=== PATIENT | female | born 1950 | race Caucasian/White ===

== ENCOUNTER 2017-01-24 16:02 | Inpatient (IN) | payer MEDICARE ==
[~2017-01-24] VITALS: Ht 160 cm; Wt 69.8 kg
[~2017-01-24 16:02] MED LIST: ESTR1TAB PO; LORTA5 PO
[2017-01-24 16:12] VITALS: BP 141/89; PULSE 78; RESP 16; TEMP 97.9; O2SAT 96
[2017-01-24 16:15] VITALS: RESP 16; O2SAT 98
[2017-01-24] MEDS ORDERED: LOPREEZA PO (16:23)
[2017-01-24] MEDS ORDERED: SODIUM CHLOR 0.9% 1000 ML INJ 1,000 ML IV SCH (16:35)
[2017-01-24] MEDS ORDERED: ONDANSETRON HCL 4 MG/2 ML VIAL IVP ONE (16:45)
[2017-01-24] MEDS ORDERED: MORPHINE SULFATE 4 MG/ML INJ IV PUSH ONE (16:45)
[2017-01-24] MEDS ORDERED: SODIUM CHLORIDE 0.9% FLUSH 10 ML FLUSH IV FLUSH PRN ×2 (16:45→20:15)
--- NOTE | 2017-01-24 16:59 | PD ---
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 She states the surgery was remote. Today the pain she states is in her left upper quadrant, cramping, radiates to her back, associated with nausea without vomiting, chronic diarrhea secondary to short gut syndrome. PFSH Past Medical History Cancer: No Cardiovascular Problems: No Diabetes: No Endocrine: No Gastrointestinal Disorders: Yes (1996 COLON RESECTION DUE TO ULCERATIVE COLITIS ) Genitourinary: No Hepatitis: No Hiatal Hernia: No Immune Disorder: Yes (ULCERATIVE COLITIS) Medical other: Yes (HX ULCERATIVE COLITIS) Musculoskeletal: Yes (LOW BACK PAIN; 04/05 LEFT SI INJECTION) Neurologic: No Psychiatric: No Reproductive: Yes Respiratory: No Immunizations Current: Yes Thyroid Disease: No Tetanus Vaccination: Unknown Influenza Vaccination: No ?: Not Menopausal: Yes Dilation and Curettage (D&C): Yes Tubal Ligation: Yes Past Surgical History Abdominal Surgery: Yes (1996 COLECTOMY WITH ILEOANAL POUCH; REVERSAL OF POUCH) AICD: No Body Medical Devices: SURGICAL MARLEN ? Cardiac Surgery: No Ear Surgery: No Endocrine Surgery: No Eye Surgery: Yes (CATARACT SX ) Genitourinary Surgery: No Gynecologic Surgery: Yes (TUBAL LIGATION ) Joint Replacement: No Oral Surgery: Yes (wisdom teeth taken out) Pacemaker: No Thoracic Surgery: No Other Surgery: Yes (ABDOMINOPLASTY/DIASTAIS REPAIR/ 03/2015 twisted bowel) Social History Alcohol Use: No Tobacco Use: No Substance Use: No Allergies-Medications (Allergen,Severity, Reaction): Coded Allergies: Sulfa (Sulfonamide Antibiotics) (Unverified Allergy, Severe, Nausea/ Vomiting, 01/24/17) Reported Meds & Prescriptions Reported Meds & Active Scripts Active Reported [lopreeza] 1 Tab PO DAILY Review of Systems Except as stated in HPI: all other systems reviewed are Neg Physical Exam Narrative GENERAL: Well-developed, appears chronically mildly malnourished and older than stated age. SKIN: Focused skin assessment warm/dry. No rash no wound. Well-healed abdominal surgical scars. HEAD: Atraumatic. Normocephalic. EYES: Pupils equal and round. No scleral icterus. No injection or drainage. ENT: No nasal bleeding or discharge. Mucous membranes pink and moist. NECK: Trachea midline. No JVD. CARDIOVASCULAR: Regular rate and rhythm. No murmur appreciated. RESPIRATORY: No accessory muscle use. Clear to auscultation. Breath sounds equal bilaterally. GASTROINTESTINAL: Abdomen soft, minimally tender in the right lower quadrant, no rebound no percussive tenderness., nondistended. Hepatic and splenic margins not palpable. MUSCULOSKELETAL: No obvious deformities. No clubbing. No cyanosis. No edema. NEUROLOGICAL: Awake and alert. No obvious cranial nerve deficits. Motor grossly within normal limits. Normal speech. PSYCHIATRIC: Appropriate mood and affect; insight and judgment normal. Data Data Last Documented VS Vital Signs Date Time Temp Pulse Resp B/P (MAP) Pulse Ox O2 Delivery O2 Flow Rate FiO2 01/24/17 17:53 79 16 101/59 (73) 97 Room Air 01/24/17 16:12 97.9 Orders Orders Complete Blood Count With Diff (01/24/17 16:35) Comprehensive Metabolic Panel (01/24/17 16:35) Lipase (01/24/17 16:35) Lactic Acid (01/24/17 16:35) Prothrombin Time / Inr (Pt) (01/24/17 16:35) Act Partial Throm Time (Ptt) (01/24/17 16:35) Urinalysis - C+S If Indicated (01/24/17 16:35) Ct Abd/Pel W Iv Contrast(Rout) (01/24/17 16:35) Iv Access Insert/Monitor (01/24/17 16:35) Ecg Monitoring (01/24/17 16:35) Oximetry (01/24/17 16:35) Morphine Inj (Morphine Inj) (01/24/17 16:45) Ondansetron Inj (Zofran Inj) (01/24/17 16:45) Sodium Chlor 0.9% 1000 Ml Inj (Ns 1000 M (01/24/17 16:35) Sodium Chloride 0.9% Flush (Ns Flush) (01/24/17 16:45) Iohexol 350 Inj (Omnipaque 350 Inj) (01/24/17 17:36) Consult Gastroenterology (01/24/17 ) Diet Npo (01/25/17 Breakfast) Admit Order (Ed Use Only) (01/24/17 ) Mri Mrcp W/O Contrast (01/25/17 ) Labs Laboratory Tests Test 01/24/17 16:45 01/24/17 16:55 White Blood Count 11.7 TH/MM3 Red Blood Count 4.22 MIL/MM3 Hemoglobin 13.1 GM/DL Hematocrit 38.2 % Mean Corpuscular Volume 90.4 FL Mean Corpuscular Hemoglobin 31.0 PG Mean Corpuscular Hemoglobin Concent 34.3 % Red Cell Distribution Width 11.8 % Platelet Count 195 TH/MM3 Mean Platelet Volume 8.6 FL Neutrophils (%) (Auto) 79.4 % Lymphocytes (%) (Auto) 12.8 % Monocytes (%) (Auto) 6.7 % Eosinophils (%) (Auto) 0.4 % Basophils (%) (Auto) 0.7 % Neutrophils # (Auto) 9.3 TH/MM3 Lymphocytes # (Auto) 1.5 TH/MM3 Monocytes # (Auto) 0.8 TH/MM3 Eosinophils # (Auto) 0.0 TH/MM3 Basophils # (Auto) 0.1 TH/MM3 CBC Comment DIFF FINAL Differential Comment Prothrombin Time 10.3 SEC Prothromb Time International Ratio 1.0 RATIO Activated Partial Thromboplast Time 24.4 SEC Blood Urea Nitrogen 11 MG/DL Creatinine 0.88 MG/DL Random Glucose 116 MG/DL Total Protein 7.3 GM/DL Albumin 3.2 GM/DL Calcium Level 8.7 MG/DL Alkaline Phosphatase 96 U/L Aspartate Amino Transf (AST/SGOT) 483 U/L Alanine Aminotransferase (ALT/SGPT) 282 U/L Total Bilirubin 1.6 MG/DL Sodium Level 136 MEQ/L Potassium Level 3.7 MEQ/L Chloride Level 105 MEQ/L Carbon Dioxide Level 24.0 MEQ/L Anion Gap 7 MEQ/L Estimat Glomerular Filtration Rate 64 ML/MIN Lactic Acid Level 1.7 mmol/L Lipase 5460 U/L Urine Color YELLOW Urine Turbidity CLEAR Urine pH 6.0 Urine Specific [place] 1.017 Urine Protein NEG mg/dL Urine Glucose (UA) NEG mg/dL Urine Ketones NEG mg/dL Urine Occult Blood SMALL Urine Nitrite NEG Urine Bilirubin NEG Urine Leukocyte Esterase NEG Urine RBC 0-3 /hpf Urine WBC 0-2 /hpf Urine Squamous Epithelial Cells 0-5 /hpf Microscopic Urinalysis Comment CULT NOT INDICATED MDM Medical Decision Making Medical Screen Exam Complete: Yes Emergency Medical Condition: Yes Differential Diagnosis Bowel obstruction, ileus, ischemic bowel likely, diverticulitis, gastritis, gastroenteritis. Narrative Course Patient roomed in emergency department, appears somewhat chronically malnourished. Abdomen she states was painful and left upper quadrant and minimally tender in the right lower quadrant. Bowel sounds are normoactive, no rebound no percussive tenderness. Patient's labs do show an elevated lipase to 5000, AST and ALT are elevated interestingly bilirubin only modestly elevated to 1.6, alkaline phosphatase normal. Her CAT scan does show lithiasis without cholecystitis. Patient discussed with Drs. Barnhart is on-call for GI who recommends admission to the hospital. MRCP has been ordered, could be a gallstone ileus associated with gallstone pancreatitis although the patient's alkaline phosphatase is negative. Certainly could be a chronic bowel dilation and alcohol ingestion of the patient does not relate a history of heavy alcohol ingestion to me. Either way the patient is feeling more comfortable and she is agreeable to admission. At this time the stomach is empty's and no indication for emergent NG tube placement. We'll defer to GI. Diagnosis Primary Impression: Pancreatitis Additional Impression: Small bowel obstruction Admitting Information Admitting Physician Requests: Admit Condition: Stable Phill Monroy MD Jan 24, 2017 16:59
[2017-01-24 17:00] LABS: AUTOMATED NEUTROPHIL # 9.3 TH/MM3 (1.8-7.7); BASOPHIL # 0.1 TH/MM3 (0-0.2); BASOPHIL % 0.7 % (0.0-2.0); EOSINOPHIL % 0.4 % (0.0-4.0); HEMATOCRIT 38.2 % (35.0-46.0); HEMO FLAGS DIFF FINAL; LYMPH % 12.8 % (9.0-44.0); LYMPHOCYTE # 1.5 TH/MM3 (1.0-4.8); MEAN CELL VOLUME 90.4 FL (80.0-100.0); MEAN CORPUSCULAR HGB CONC 34.3 % (32.0-36.0); MONO % 6.7 % (0.0-8.0); NEUT % 79.4 % (16.0-70.0); PLATELET COUNT 195 TH/MM3 (150-450); RED BLOOD COUNT 4.22 MIL/MM3 (4.00-5.30); RED CELL DISTRIBUTION WIDTH 11.8 % (11.6-17.2); WHITE BLOOD COUNT 11.7 TH/MM3 (4.0-11.0)
[2017-01-24 17:08] LABS: CHLORIDE 105 MEQ/L (98-107); POTASSIUM 3.7 MEQ/L (3.5-5.1); SODIUM (NA) 136 MEQ/L (136-145)
[2017-01-24 17:12] LABS: ANION GAP 7 MEQ/L (5-15); APTT (PATIENT) 24.4 SEC (24.3-30.1); PROTHROMBIN TIME - PATIENT 10.3 SEC (9.8-11.6)
[2017-01-24 17:13] LABS: BLOOD UREA NITROGEN 11 MG/DL (7-18)
[2017-01-24 17:15] LABS: ALT (GPT) 282 U/L (10-53); AST (GOT) 483 U/L (15-37); GLOMERULAR FILTRATION RATE 64 ML/MIN (>89)
[2017-01-24 17:17] LABS: TOTAL BILIRUBIN ADULT 1.6 MG/DL (0.2-1.0)
[2017-01-24 17:18] LABS: ALKALINE PHOSPHATASE 96 U/L (45-117)
[2017-01-24 17:20] LABS: BLOOD, URINE SMALL (NEG); GLUCOSE,URINE NEG (NEG); KETONE, URINE NEG (NEG); NITRITE,URINE NEG (NEG)
[2017-01-24 17:24] LABS: COMMENT (UR) CULT NOT INDICATED; CULTURE IF INDICATED CULT NOT INDICATED; RBC, URINE 0-3 /hpf (0-3); SQUAMOUS EPITHELIAL CELL URINE 0-5 /hpf (0-5); URINE COLOR YELLOW (YELLW/STRAW); WBC, URINE 0-2 /hpf (0-5)
[2017-01-24] MEDS ORDERED: IOHEXOL 350 MG/ML 10 ML VIAL (for RAD DIAG) IVCONTRAST ONE (17:36)
[2017-01-24 17:53] VITALS: BP 101/59; PULSE 79; RESP 16; O2SAT 97
--- NOTE | 2017-01-24 18:03 | RADRPT ---
EXAM DATE/TIME: 01/24/2017 17:30 [facility] COMPARISON: CT ABDOMEN & PELVIS W CONTRAST, June 05, 2015, 22:30. INDICATIONS : Abdominal pain. IV CONTRAST: 80 cc Omnipaque 350 (iohexol) IV ORAL CONTRAST: No oral contrast ingested. RADIATION DOSE: 9.64 CTDIvol (mGy) MEDICAL HISTORY : Ulcerative colitis. SURGICAL HISTORY : Colon resection. Tubal ligation. ENCOUNTER: Initial ACUITY: 1 day PAIN SCALE: 8/10 LOCATION: abdomen TECHNIQUE: Volumetric scanning of the abdomen and pelvis was performed. Using automated exposure control and adjustment of the mA and/or kV according to patient size, radiation dose was kept as low as reasonably achievable to obtain optimal diagnostic quality images. DICOM format image data is av ailable electronically for review and comparison. FINDINGS: LOWER LUNGS: The visualized lower lungs are clear. LIVER: Homogeneous density without lesion. There is no dilation of the biliary tree. The gallbla dder is moderately distended and contains small calcified stones. There is no significant wall thicke chioma or pericholecystic fluid. SPLEEN: Normal size without lesion. PANCREAS: Within normal limits. KIDNEYS: Normal in size and shape. There is no mass, stone or hydronephrosis. ADRENAL GLANDS: Within normal limits. VASCULAR: There is no aortic aneurysm. BOWEL/MESENTERY: The second and third portions of the duodenum are distended and filled with flui d. There is an acute transition as the duodenum crosses the aorta. A small vessel that is otherwise n ondistended. Postsurgical changes are moderate. A subtotal colectomy are noted. Focal scarring is rudolph ntified in the pelvis. There is no evidence of suspicious mass. Small cysts are identified in the lef t adnexal region. ABDOMINAL WALL: Within normal limits. RETROPERITONEUM: There is no lymphadenopathy. BLADDER: No wall thickening or mass. REPRODUCTIVE: Small cyst identified in the left adnexal region measuring 1.9 and 1.8 cm in size. The uterus is displaced to the left secondary to scarring. No suspicious solid pelvic masses or evide nce of lymphadenopathy. INGUINAL: There is no lymphadenopathy or hernia. MUSCULOSKELETAL: Within normal limits for patient age. CONCLUSION: 1. Distended second and third portions of the duodenum without apparent cause. 2. Postsurgical changes following subtotal colectomy. 3. Distended gallbladder with cholelithiasis but no active inflammatory change. 4. No evidence of suspicious mass or malignant lymphadenopathy. 5. 2 cm left adnexal cysts as described. Hugo Roberts MD on January 24, 2017 at 17:52 Board Certified Radiologist. This report was verified electronically.
[2017-01-24 19:38] VITALS: BP 98/54; PULSE 66; RESP 16; O2SAT 98
[2017-01-24] MEDS ORDERED: MORPHINE SULFATE 2 MG/ML INJ IV PUSH PRN (20:15)
[2017-01-24] MEDS ORDERED: NALOXONE HCL 0.4 MG/ML AMP IV PUSH PRN (20:15)
[2017-01-24 20:30] VITALS: BP 102/62; PULSE 69; RESP 16; TEMP 97.3; O2SAT 96
[2017-01-24] MEDS: SODIUM CHLORIDE 0.9% FLUSH 10 ML FLUSH IV FLUSH SCH (22:00)
[2017-01-24 23:00] VITALS: PULSE 59
[2017-01-25] VITALS (9 sets, daily range): BP systolic 88–118; BP diastolic 56–76; PULSE 68–91; RESP 15–20; TEMP 97.1–99.1; O2SAT 94–99
[2017-01-25 06:11] LABS: AUTOMATED NEUTROPHIL # 4.7 TH/MM3 (1.8-7.7); BASOPHIL % 0.2 % (0.0-2.0); EOSINOPHIL # 0.1 TH/MM3 (0-0.4); EOSINOPHIL % 1.7 % (0.0-4.0); HEMATOCRIT 36.5 % (35.0-46.0); HEMO FLAGS DIFF FINAL; LYMPH % 26.2 % (9.0-44.0); LYMPHOCYTE # 1.9 TH/MM3 (1.0-4.8); MEAN CELL VOLUME 91.1 FL (80.0-100.0); MEAN CORPUSCULAR HEMOGLOBIN 30.8 PG (27.0-34.0); MEAN CORPUSCULAR HGB CONC 33.8 % (32.0-36.0); MONO % 7.9 % (0.0-8.0); PLATELET COUNT 154 TH/MM3 (150-450); RED BLOOD COUNT 4.01 MIL/MM3 (4.00-5.30); RED CELL DISTRIBUTION WIDTH 11.9 % (11.6-17.2); WHITE BLOOD COUNT 7.3 TH/MM3 (4.0-11.0)
[2017-01-25 06:16] LABS: CHLORIDE 108 MEQ/L (98-107); POTASSIUM 3.7 MEQ/L (3.5-5.1); SODIUM (NA) 143 MEQ/L (136-145)
[2017-01-25 06:21] LABS: ANION GAP 8 MEQ/L (5-15); BICARBONATE 27.5 MEQ/L (21.0-32.0)
[2017-01-25 06:22] LABS: BLOOD UREA NITROGEN 11 MG/DL (7-18)
[2017-01-25 06:35] LABS: ALKALINE PHOSPHATASE 107 U/L (45-117); AST (GOT) 605 U/L (15-37); GLOMERULAR FILTRATION RATE 63 ML/MIN (>89); TOTAL BILIRUBIN ADULT 3.5 MG/DL (0.2-1.0)
[2017-01-25 06:36] LABS: ALT (GPT) 582 U/L (10-53)
[2017-01-25] MEDS: ONDANSETRON HCL 4 MG/2 ML VIAL IVP PRN (08:36)
[2017-01-25] MEDS ORDERED: LORazepam 2 MG/ML VIAL IV PUSH ONE (09:00)
[2017-01-25] MEDS: SODIUM CHLOR 0.9% 1000 ML INJ 1,000 ML IV SCH ×2 (09:33→21:36)
[2017-01-25] MEDS: SODIUM CHLORIDE 0.9% FLUSH 10 ML FLUSH IV FLUSH SCH ×2 (09:33→21:00)
--- NOTE | 2017-01-25 10:44 | MB ---
cc: IGNACIO MELO M.D. DATE OF CONSULTATION 01/24/2017 DATE OF 1950 REASON FOR REFERRAL Abdominal pain. HISTORY OF THE PRESENT ILLNESS Thank you for this consultation. A pleasant 66-year-old lady who is generally in good health. No significant problem until two days ago when she started having significant abdominal pain in the mid epigastric area with some nausea and vomiting. The patient denied any other problems. The pain mostly limited to the gastric area and radiating to the back side and to the back. Not related to food but she does not feel that she wants to eat. The patient also has diarrhea but it is related to short gut syndrome because she had large resection of her colon secondary to supposedly twisted colon. She denied any other GI issue and no other GI symptoms. ALLERGIES SULFA. PAST MEDICAL HISTORY Significant for: 1. Colon resection in 1996. Supposedly ulcerative colitis versus colon. 2. Low back pain. 3. Dilation and curettage. 4. No high blood pressure. No diabetes. No cardiac issues. 5. She had tubal ligation in the past. 6. Cataract surgery. SOCIAL HISTORY Negative for tobacco, drugs or alcohol. MEDICATIONS Just [id number] vitamin. REVIEW OF SYSTEMS All 12 point negative except for the history of present illness. PHYSICAL EXAMINATION GENERAL: Alert and oriented in no acute distress. Lying in bed comfortably. Well-nourished, well-developed. VITAL SIGNS: Stable. No fever. HEENT: Pupils equal, round and reactive to light. NECK: Supple. CHEST: Clear to auscultation and percussion. CARDIOVASCULAR: Regular rate and rhythm. No murmur or gallop. ABDOMEN: Soft. Minimal tenderness in the mid abdomen. Positive bowel sounds. No hepatosplenomegaly. EXTREMITIES: No edema, clubbing or cyanosis. NEUROLOGICAL: Intact without any focal deficits. PSYCHOLOGIC: Appropriate. LABORATORY DATA White count 11.7, hemoglobin 13, platelet count 195. INR 1.0. Chemistry, BUN, creatinine and electrolytes normal. Total bilirubin 1.6. AST 483. ALT 282. Lipase 5460. Albumin 3.2. IMAGING CT scan, distended second and third portion of the duodenum. Post surgical changes following subtotal colectomy. Distended gallbladder with cholelithiasis. No evidence of mass or malignancy. ASSESSMENT AND PLAN A 56-year-old lady who had abdominal pain most likely related to pancreatitis, most likely biliary in origin especially with elevated liver enzymes and the CT scan findings. The patient now is doing okay, no significant problem. I am going to order and MRCP to evaluate the biliary tree and rule out common bile duct stone. We will repeat liver function tests and lipase. Continue hydration. Pain medicine as needed. Further plan depends on how she is doing and the findings on the MRCP. MD LIZZIE Mayo/KK /9:32 PM /10:38 AM
--- NOTE | 2017-01-25 11:22 | RADRPT ---
EXAM DATE/TIME: 01/25/2017 10:16 [facility] COMPARISON: CT ABDOMEN & PELVIS W CONTRAST, January 24, 2017, 17:30. INDICATIONS : Abdominal pain. Nausea and vomiting. MEDICAL HISTORY : None. SURGICAL HISTORY : Colostomy. Tubal ligation. Ileostomy. ENCOUNTER: Initial ACUITY: 1 day PAIN SCORE: 5/10 LOCATION: Abdomen. TECHNIQUE: Multiplanar, multisequence magnetic resonance imaging of the abdomen was performed. High-resolution 3D dataset was utilized to reconstruct maximum-intensity projection (MIP) images. FINDINGS: INTRAHEPATIC BILE DUCTS: Within normal limits. No significant anatomical variant is present. EXTRAHEPATIC BILE DUCTS: The common bile duct measures 5 mm and tapers distally. No stone or filling defect is identified. GALLBLADDER: There are multiple small stones in the gallbladder. No wall thickening, wall edema, or pericholecysti c fluid is present. LIVER: There is mild signal loss on out of phase imaging. No concerning liver lesion is identified on this n on-contrast exam. PANCREAS: The main pancreatic duct is normal in size. There is no significant anatomical variant. Signal inte nsity is within normal limits. No mass is visualized on this non-contrast exam. OTHER: The remaining visualized structures demonstrate no acute abnormality on this non-contrast exam. CONCLUSION: 1. Cholelithiasis. However, there are no findings to indicate acute gallbladder obstruction or inflam mation. 2. The intra-and extrahepatic bile ducts are within normal limits. 3. Mild hepatic steatosis. Cayden Dong MD on January 25, 2017 at 11:15 Board Certified Radiologist. This report was verified electronically.
--- NOTE | 2017-01-25 12:39 | PD.CONS ---
cc: Kaden Hernandez MD HPI Service General Surgery Consult Requested By Cayden RODRIGUEZ Reason for Consult Cholelithiasis Primary Care Physician Benson Santiago M.D. History of Present Illness This is a 66 year old female with a past medical history of ulcerative colitis s /p colon resection who presents to the Emergency Department with LUQ pain that began on Sunday evening. She reports she had made Doyle Matthew soup that day and had a small amount of it. She does have associated nausea and vomiting. A CT of the abdomen/pelvis was complete which revealed a dilated duodenum and cholelithiasis. She had increased liver enzymes. An MRCP has been ordered but is not complete to evaluate for a common bile duct stone. A General Surgery consultation has been requested for evaluation of cholelithiasis. Review of Systems Constitutional: COMPLAINS OF: Fatigue, Chills, Dizziness, Change in appetite Endocrine: DENIES: Polydipsia, Polyuria, Polyphagia Eyes: DENIES: Diplopia Ears, nose, mouth, throat: DENIES: Hearing loss Respiratory: DENIES: Cough Cardiovascular: DENIES: Palpitations Gastrointestinal: COMPLAINS OF: Abdominal pain, Nausea, Vomiting Genitourinary: DENIES: Urinary frequency Musculoskeletal: DENIES: Joint pain Integumentary: DENIES: Abnormal pigmentation Hematologic/lymphatic: DENIES: Bruising Immunologic/allergic: DENIES: Eczema Neurologic: COMPLAINS OF: Headache, DENIES: Localized weakness Psychiatric: DENIES: Mood changes, Depression Past Family Social History Past Medical History Ulcerative colitis Past Surgical History Tubal ligation Colon resection for ulcerative colitis Reported Medications lopreeza Allergies: Coded Allergies: Sulfa (Sulfonamide Antibiotics) (Unverified Allergy, Severe, Nausea/ Vomiting, 01/24/17) Active Ordered Medications Current Medications Medications (Trade) Dose Ordered Sig/Edgar Route Start Time Stop Time Status Last Admin (NS Flush) 2 ml UNSCH PRN IV FLUSH 01/24/17 20:15 (NS Flush) 2 ml BID IV FLUSH 01/24/17 21:00 01/25/17 09:33 (Zofran Inj) 4 mg Q6H PRN IVP 01/24/17 20:15 01/25/17 08:36 (Narcan Inj) 0.4 mg UNSCH PRN IV PUSH 01/24/17 20:15 (Morphine Inj) 2 mg Q3H PRN IV PUSH 01/24/17 20:15 Sodium Chloride 1,000 ml @ 125 mls/hr Q8H IV 01/25/17 08:45 01/25/17 09:33 Family History Noncontributory Social History Denies tobacco use Denies ETOH use Denies illicit drug use Physical Exam Vital Signs Vital Signs Date Time Temp Pulse Resp B/P (MAP) Pulse Ox O2 Delivery O2 Flow Rate FiO2 01/25/17 12:00 98.3 69 16 118/65 (82) 99 01/25/17 08:00 97.8 68 16 104/63 (77) 96 01/25/17 04:00 97.4 72 16 88/56 (67) 96 01/25/17 00:00 97.4 68 16 105/66 (79) 97 01/24/17 23:00 59 01/24/17 20:30 97.3 69 16 102/62 (75) 96 01/24/17 20:14 98 01/24/17 19:38 66 16 98/54 (69) 98 Room Air 01/24/17 17:53 79 16 101/59 (73) 97 Room Air 01/24/17 17:52 16 01/24/17 16:15 16 98 Room Air 01/24/17 16:14 16 01/24/17 16:12 97.9 78 16 141/89 (106) 96 Physical Exam GENERAL: Pleasant 66 year old female sitting on the side of the bed in moderate distress. SKIN: Cool and dry. HEAD: Atraumatic. Normocephalic. EYES: Pupils equal and round. No scleral icterus. No injection or drainage. ENT: No nasal bleeding or discharge. Mucous membranes pink and moist. NECK: Trachea midline. CARDIOVASCULAR: Regular rate and rhythm. RESPIRATORY: No accessory muscle use. Clear to auscultation. Breath sounds equal bilaterally. GASTROINTESTINAL: Abdomen soft, nondistended. Epigastric to LUQ tenderness with palpation. Well healed midline scar; well healed lower incision; prior colostomy site well healed. MUSCULOSKELETAL: Extremities without clubbing, cyanosis, or edema. No obvious deformities. NEUROLOGICAL: Awake and alert. No obvious cranial nerve deficits. Motor grossly within normal limits. Five out of 5 muscle strength in the arms and legs. Normal speech. PSYCHIATRIC: Appropriate mood and affect; insight and judgment normal. Laboratory Laboratory Tests Test 01/24/17 16:45 01/24/17 16:55 01/25/17 05:40 01/25/17 11:20 White Blood Count 11.7 7.3 Red Blood Count 4.22 4.01 Hemoglobin 13.1 12.3 Hematocrit 38.2 36.5 Mean Corpuscular Volume 90.4 91.1 Mean Corpuscular Hemoglobin 31.0 30.8 Mean Corpuscular Hemoglobin Concent 34.3 33.8 Red Cell Distribution Width 11.8 11.9 Platelet Count 195 154 Mean Platelet Volume 8.6 8.6 Neutrophils (%) (Auto) 79.4 64.0 Lymphocytes (%) (Auto) 12.8 26.2 Monocytes (%) (Auto) 6.7 7.9 Eosinophils (%) (Auto) 0.4 1.7 Basophils (%) (Auto) 0.7 0.2 Neutrophils # (Auto) 9.3 4.7 Lymphocytes # (Auto) 1.5 1.9 Monocytes # (Auto) 0.8 0.6 Eosinophils # (Auto) 0.0 0.1 Basophils # (Auto) 0.1 0.0 CBC Comment DIFF FINAL DIFF FINAL Differential Comment Prothrombin Time 10.3 Prothromb Time International Ratio 1.0 Activated Partial Thromboplast Time 24.4 Blood Urea Nitrogen 11 11 Creatinine 0.88 0.89 Random Glucose 116 94 Total Protein 7.3 6.4 Albumin 3.2 2.8 Calcium Level 8.7 8.1 Alkaline Phosphatase 96 107 Aspartate Amino Transf (AST/SGOT) 483 605 Alanine Aminotransferase (ALT/SGPT) 282 582 Total Bilirubin 1.6 3.5 Sodium Level 136 143 Potassium Level 3.7 3.7 Chloride Level 105 108 Carbon Dioxide Level 24.0 27.5 Anion Gap 7 8 Estimat Glomerular Filtration Rate 64 63 Lactic Acid Level 1.7 Lipase 5460 5792 Urine Color YELLOW Urine Turbidity CLEAR Urine pH 6.0 Urine Specific [place] 1.017 Urine Protein NEG Urine Glucose (UA) NEG Urine Ketones NEG Urine Occult Blood SMALL Urine Nitrite NEG Urine Bilirubin NEG Urine Leukocyte Esterase NEG Urine RBC 0-3 Urine WBC 0-2 Urine Squamous Epithelial Cells 0-5 Microscopic Urinalysis Comment CULT NOT INDICATED Direct Bilirubin 1.3 Result Diagram: 01/25/17 0540 01/25/17 0540 Imaging Last 48 hours Impressions Cholangiopancreatography MRI 01/25/17 0000 Signed Impressions: Service Date/Time: January 10:16 - CONCLUSION: 1. Cholelithiasis. However, there are no findings to indicate acute gallbladder obstruction or inflammation. 2. The intra-and extrahepatic bile ducts are within normal limits. 3. Mild hepatic steatosis. Cayden Dong MD Abdomen/Pelvis CT 01/24/17 1635 Signed Impressions: Service Date/Time: Tuesday, January 24, 2017 17:30 - CONCLUSION: 1. Distended second and third portions of the duodenum without apparent cause. 2. Postsurgical changes following subtotal colectomy. 3. Distended gallbladder with cholelithiasis but no active inflammatory change. 4. No evidence of suspicious mass or malignant lymphadenopathy. 5. 2 cm left adnexal cysts as described. Hugo Roberts MD Assessment and Plan Assessment and Plan 66 year old female with LUQ abdominal pain; elevated liver enzymes; dilated duodenum on CT abd/pelvis -NPO -Monitor liver enzymes -IVF -Pain control -MRCP to rule out common bile duct stone -GI following -Thank you for this consult; We will continue to follow Agree with Paul. Needs assessment of CBD and duodenum (dilated on CT). Will FU labs and see if they correct. Discussed possibilty of gallstone pancreatitis and elective cholecystectomy with patient and . ADRIA HERNANDEZ MD FACS Discussed Condition With Dr. David Dunn and Cleo Demarco RN Jan 25, 2017 12:39 Kaden Hernandez MD Jan 26, 2017 13:08
--- NOTE | 2017-01-25 13:04 | HHI.HP ---
[facility] Benson Santiago M.D. Admission Diagnosis Pancreatitis, Transaminitis, Possible Ileus Diagnoses: Travel History International Travel<30 Days: No Contact w/Intl Traveler <30 Da: No Traveled to Known Affected Are: No History of Present Illness 66-year-old white female who was admitted for gallstone pancreatitis. Patient was in her usual state of health until about a few days ago when she began experiencing a sudden onset of abdominal pain after reaching for an object with her left arm at home. The pain radiated from her left upper abdomen to her mid epigastrium. Pain at its worst fluctuating up to a 10/10. Initially the pain would wax and wane but in the last 24 hours he became more persistent and unbearable and the patient decided to come to the emergency room. She has difficulty describing the consistency or the nature of the pain to me. She says she cannot of the right any alleviating or relieving factors otherwise when he came to medications or positioning. Patient reports some intermittent nausea but no vomiting, denies any fevers or chills. Denies any changes in her bowel habits in the past few days. She says she does not take any ongoing prescribed medications. She states that she has a complex intra-abdominal medical/surgical history with colon resection for ulcerative colitis as well as what sounds like adhesion within the past few years. Review of Systems Except as stated in HPI: all other systems reviewed are Neg Past Family Social History Past Medical History Ulcerative colitis Past Surgical History Colon resection Intestinal re-anastomosis Allergies: Coded Allergies: Sulfa (Sulfonamide Antibiotics) (Unverified Allergy, Severe, Nausea/ Vomiting, 01/24/17) Family History Ulcerative colitis in uncle Social History Denies any tobacco usage on the past, reports very light occasional alcohol use , denies any and all illicit drug use Physical Exam Vital Signs Vital Signs Date Time Temp Pulse Resp B/P (MAP) Pulse Ox O2 Delivery O2 Flow Rate FiO2 01/25/17 12:00 98.3 69 16 118/65 (82) 99 01/25/17 08:00 97.8 68 16 104/63 (77) 96 01/25/17 04:00 97.4 72 16 88/56 (67) 96 01/25/17 00:00 97.4 68 16 105/66 (79) 97 01/24/17 23:00 59 01/24/17 20:30 97.3 69 16 102/62 (75) 96 01/24/17 20:14 98 01/24/17 19:38 66 16 98/54 (69) 98 Room Air 01/24/17 17:53 79 16 101/59 (73) 97 Room Air 01/24/17 17:52 16 01/24/17 16:15 16 98 Room Air 01/24/17 16:14 16 01/24/17 16:12 97.9 78 16 141/89 (106) 96 Physical Exam VS: afebrile GENERAL: NAD, elderly white female lying in bed, awake, alert, well-nourished SKIN: Warm and dry. Very subtle jaundice EYES: No scleral icterus. No injection or drainage. ENT: No nasal bleeding or discharge. Mucous membranes pink and moist. CARDIOVASCULAR: Regular rate and rhythm. no murmurs RESPIRATORY: No accessory muscle use. Clear to auscultation. Breath sounds equal bilaterally. GASTROINTESTINAL: Abdomen soft, ND. Has some mild tenderness to palpation with no rebound over epigastrium. Extremities: No clubbing, cyanosis, or edema. No obvious deformities. MUSCULOSKELETAL: Extremities without clubbing, cyanosis, or edema. No obvious deformities. grossly intact ROM with 5/5 strength in upper and lower extremities proximally NEUROLOGICAL: Awake and alert. No obvious cranial nerve deficits. No facial droop nor slurred speech noted. PSYCHIATRIC: Appropriate mood and affect; insight and judgment normal. Laboratory Laboratory Tests Test 01/24/17 16:45 01/24/17 16:55 01/25/17 05:40 01/25/17 11:20 White Blood Count 11.7 7.3 Red Blood Count 4.22 4.01 Hemoglobin 13.1 12.3 Hematocrit 38.2 36.5 Mean Corpuscular Volume 90.4 91.1 Mean Corpuscular Hemoglobin 31.0 30.8 Mean Corpuscular Hemoglobin Concent 34.3 33.8 Red Cell Distribution Width 11.8 11.9 Platelet Count 195 154 Mean Platelet Volume 8.6 8.6 Neutrophils (%) (Auto) 79.4 64.0 Lymphocytes (%) (Auto) 12.8 26.2 Monocytes (%) (Auto) 6.7 7.9 Eosinophils (%) (Auto) 0.4 1.7 Basophils (%) (Auto) 0.7 0.2 Neutrophils # (Auto) 9.3 4.7 Lymphocytes # (Auto) 1.5 1.9 Monocytes # (Auto) 0.8 0.6 Eosinophils # (Auto) 0.0 0.1 Basophils # (Auto) 0.1 0.0 CBC Comment DIFF FINAL DIFF FINAL Differential Comment Prothrombin Time 10.3 Prothromb Time International Ratio 1.0 Activated Partial Thromboplast Time 24.4 Blood Urea Nitrogen 11 11 Creatinine 0.88 0.89 Random Glucose 116 94 Total Protein 7.3 6.4 Albumin 3.2 2.8 Calcium Level 8.7 8.1 Alkaline Phosphatase 96 107 Aspartate Amino Transf (AST/SGOT) 483 605 Alanine Aminotransferase (ALT/SGPT) 282 582 Total Bilirubin 1.6 3.5 Sodium Level 136 143 Potassium Level 3.7 3.7 Chloride Level 105 108 Carbon Dioxide Level 24.0 27.5 Anion Gap 7 8 Estimat Glomerular Filtration Rate 64 63 Lactic Acid Level 1.7 Lipase 5460 5792 Urine Color YELLOW Urine Turbidity CLEAR Urine pH 6.0 Urine Specific [place] 1.017 Urine Protein NEG Urine Glucose (UA) NEG Urine Ketones NEG Urine Occult Blood SMALL Urine Nitrite NEG Urine Bilirubin NEG Urine Leukocyte Esterase NEG Urine RBC 0-3 Urine WBC 0-2 Urine Squamous Epithelial Cells 0-5 Microscopic Urinalysis Comment CULT NOT INDICATED Direct Bilirubin 1.3 Result Diagram: 01/25/17 0540 01/25/17539 Caprini VTE Risk Assessment Caprini VTE Risk Assessment: Mod/High Risk (score >= 2) Caprini Risk Assessment Model Point Value = 1 Point Value = 2 Point Value = 3 Point Value = 5 Age 41-60 Minor surgery BMI > 25 kg/m2 Swollen legs Varicose veins or History of unexplained or recurrent spontaneous Oral contraceptives or hormone replacement Sepsis (< 1 month) Serious lung disease, including pneumonia (< 1 month) Abnormal pulmonary function Acute myocardial infarction Congestive heart failure (< 1 month) History of inflammatory bowel disease Medical patient at bed rest Age 61-74 Arthroscopic surgery Major open surgery (> 45 min) Laparoscopic surgery (> 45 min) Malignancy Confined to bed (> 72 hours) Immobilizing plaster cast Central venous access Age >= 75 History of VTE Family history of VTE Factor V Leiden Prothrombin [id number] Lupus anticoagulant Anticardiolipin antibodies Elevated serum homocysteine Heparin-induced thrombocytopenia Other congenital or acquired thrombophilia Stroke (< 1 month) Elective arthroplasty Hip, pelvis, or leg fracture Acute spinal cord injury (< 1 month) Prophylaxis Regimen Total Risk Factor Score Risk Level Prophylaxis Regimen 0-1 Low Early ambulation 2 Moderate Order ONE of the following: *Sequential Compression Device (SCD) *Heparin 5000 units SQ BID 3-4 Higher Order ONE of the following medications: *Heparin 5000 units SQ TID *Enoxaparin/Lovenox 40 mg SQ daily (WT < 150 kg, CrCl > 30 mL/min) *Enoxaparin/Lovenox 30 mg SQ daily (WT < 150 kg, CrCl > 10-29 mL/min) *Enoxaparin/Lovenox 30 mg SQ BID (WT < 150 kg, CrCl > 30 mL/min) AND/OR *Sequential Compression Device (SCD) 5 or more Highest Order ONE of the following medications: *Heparin 5000 units SQ TID (Preferred with Epidurals) *Enoxaparin/Lovenox 40 mg SQ daily (WT < 150 kg, CrCl > 30 mL/min) *Enoxaparin/Lovenox 30 mg SQ daily (WT < 150 kg, CrCl > 10-29 mL/min) *Enoxaparin/Lovenox 30 mg SQ BID (WT < 150 kg, CrCl > 30 mL/min) AND *Sequential Compression Device (SCD) Assessment and Plan Assessment and Plan suspected Gallstone pancreatitis - Bilirubin is elevated, MRCP is unremarkable regarding duct size - We'll monitor lipase and clinical symptoms - IV fluids and IV pain control, monitor respiratory status - Repeat BMP in a.m. - Appreciate GI and general surgery consultations. Transaminitis - Suspect possible choledocholithiasis - Repeat CMP in a.m. - IV fluids as above DVT prophylaxis SCDs given possibility of ERCP at any point Physician Certification 2 Midnight Certification Type: Admission for Inpatient Services Order for Inpatient Services The services are ordered in accordance with Medicare regulations or non- Medicare payer requirements, as applicable. In the case of services not specified as inpatient-only, they are appropriately provided as inpatient services in accordance with the 2-midnight benchmark. Estimated LOS (days): 2 2 days is the estimated time the patient will need to remain in the hospital, assuming treatment plan goals are met and no additional complications. Post-Hospital Plan: Home Steffen Lemus MD Jan 25, 2017 13:04
--- NOTE | 2017-01-25 16:55 | EKG ---
Date Performed: 01/25/2017 Time Performed: 15:58:33 PTAGE: 66 years EKG: Sinus rhythm BORDERLINE LEFT AXIS DEVIATION LOW QRS VOLTAGE IN PRECORDIAL LEADS BORDERLINE ECG No significant yocasta nge from prior electrocardiogram. PREVIOUS TRACING : 10/27/2015 09.18 DOCTOR: Willard Mackenzie Interpretating Date/Time 01/25/2017 16:54:29
--- NOTE | 2017-01-25 17:12 | PD.PROCEDR ---
GI Procedure PROCEDURE PERFORMED Enteroscopy with biopsy INDICATION FOR PROCEDURE Rule out duodenal obstruction, or mass causing bile duct obstruction PROCEDURE: The procedure, risks and benefits were discussed with Ms. Ponce and informed consent was obtained. Anesthesia sedated her with Diprivan. She was placed in the left lateral decubitus position. Enteroscopy: The Pentax videoscope was introduced through the oropharynx and advanced to the proximal portion of the jejunum under direct visualization. Retroflexion was performed in the stomach. Biopsy from the antrum FINDINGS: Minimal irritation of the stomach biopsy to rule out H. pylori Significant amount of bile in the duodenum and the stomach consistent with patent duct No mass was seen in the duodenum ampulla was not enlarged ESTIMATED BLOOD LOSS: Negative SPECIMENS REMOVED: Antrum COMPLICATIONS: None PLAN: Repeat liver function test and lipase Clear liquid diet Liver workup to rule out other etiology for elevated liver function tests Laparoscopic cholecystectomy at some point if indicated by surgeon Amanda Coker MD Jan 25, 2017 17:12
--- NOTE | 2017-01-25 17:15 | HHI.GIFU ---
Subjective Remarks Patient laying in bed comfortably, no abdominal pain, mild jaundice seen by surgery I discussed the case with them, Further questioning about medication exposure or other exposures patient stated that she only took S[place] and some NSAIDs in the last few weeks, also no needle was no blood noted to but she ate raw oyster 2 days in a row about 8 days ago Objective Vitals I&O Vital Signs Date Time Temp Pulse Resp B/P (MAP) Pulse Ox O2 Delivery O2 Flow Rate FiO2 01/25/17 16:15 97.8 91 15 115/76 (89) 97 01/25/17 16:00 99.1 78 16 106/59 (75) 94 01/25/17 12:00 98.3 69 16 118/65 (82) 99 01/25/17 08:00 97.8 68 16 104/63 (77) 96 01/25/17 04:00 97.4 72 16 88/56 (67) 96 01/25/17 00:00 97.4 68 16 105/66 (79) 97 01/24/17 23:00 59 01/24/17 20:30 97.3 69 16 102/62 (75) 96 01/24/17 20:14 98 01/24/17 19:38 66 16 98/54 (69) 98 Room Air 01/24/17 17:53 79 16 101/59 (73) 97 Room Air 01/24/17 17:52 16 I/O 01/24/17 01/24/17 01/24/17 01/25/17 01/25/17 01/25/17 07:00 15:00 23:00 07:00 15:00 23:00 Intake Total 1000 ml 240 ml Balance 1000 ml 240 ml Intake Oral 240 ml IV Total 1000 ml # Voids 3 2 # Bowel Movements 0 Laboratory Laboratory Tests Test 01/25/17 05:40 01/25/17 11:20 White Blood Count 7.3 Red Blood Count 4.01 Hemoglobin 12.3 Hematocrit 36.5 Mean Corpuscular Volume 91.1 Mean Corpuscular Hemoglobin 30.8 Mean Corpuscular Hemoglobin Concent 33.8 Red Cell Distribution Width 11.9 Platelet Count 154 Mean Platelet Volume 8.6 Neutrophils (%) (Auto) 64.0 Lymphocytes (%) (Auto) 26.2 Monocytes (%) (Auto) 7.9 Eosinophils (%) (Auto) 1.7 Basophils (%) (Auto) 0.2 Neutrophils # (Auto) 4.7 Lymphocytes # (Auto) 1.9 Monocytes # (Auto) 0.6 Eosinophils # (Auto) 0.1 Basophils # (Auto) 0.0 CBC Comment DIFF FINAL Differential Comment Blood Urea Nitrogen 11 Creatinine 0.89 Random Glucose 94 Total Protein 6.4 Albumin 2.8 Calcium Level 8.1 Alkaline Phosphatase 107 Aspartate Amino Transf (AST/SGOT) 605 Alanine Aminotransferase (ALT/SGPT) 582 Total Bilirubin 3.5 Direct Bilirubin 1.3 Sodium Level 143 Potassium Level 3.7 Chloride Level 108 Carbon Dioxide Level 27.5 Anion Gap 8 Estimat Glomerular Filtration Rate 63 Lipase 5792 Physical Exam HEENT: Pupils round and reactive to light; normocephalic; atraumatic; jaundice. Throat is clear. NECK: Neck is supple, no JVD, no lymphadenopathy. CHEST: Chest is clear to auscultation and percussion. CARDIAC: Regular rate and rhythm with no murmur gallop or rubs. ABDOMEN: Soft, nondistended, nontender; no hepatosplenomegaly; bowel sounds are present in all four quadrants. EXTREMITIES: No clubbing, cyanosis, or edema. SKIN: Normal; no rash; jaundice. INFORMATION CLERK: No focal deficits; alert and oriented times three. Assessment and Plan Plan Patient is 66-year-old lady with acute pancreatitis questionable etiology could be biliary, now she's doesn't have pain, MRCP show gallbladder stones normal size duct no filling defect, upper endoscopy was done with enteroscopy FINDINGS: Minimal irritation of the stomach biopsy to rule out H. pylori Significant amount of bile in the duodenum and the stomach consistent with patent duct No mass was seen in the duodenum ampulla was not enlarged PLAN: Repeat liver function test and lipase Clear liquid diet Liver workup to rule out other etiology for elevated liver function tests Laparoscopic cholecystectomy at some point if indicated by surgeon Amanda Coker MD Jan 25, 2017 17:15
[2017-01-25 23:15] LABS: TRANSFERRIN IRON PROFILE 228 MG/DL (200-360)
[2017-01-25] MEDS ORDERED: traMADol HCL 50 MG TAB PO ONE (23:45)
[2017-01-26] VITALS: BP 114/66; PULSE 78; RESP 20; TEMP 97.7; O2SAT 96
[2017-01-26] MEDS: SODIUM CHLOR 0.9% 1000 ML INJ 1,000 ML IV SCH ×3 (00:45→18:38)
[2017-01-26 04:00] VITALS: BP 108/64; PULSE 72; RESP 20; TEMP 97.1; O2SAT 95
[2017-01-26] MEDS: ONDANSETRON HCL 4 MG/2 ML VIAL IVP PRN ×3 (05:55→20:52)
[2017-01-26 06:32] LABS: CHLORIDE 108 MEQ/L (98-107); POTASSIUM 3.6 MEQ/L (3.5-5.1); SODIUM (NA) 140 MEQ/L (136-145)
[2017-01-26 06:37] LABS: ANION GAP 7 MEQ/L (5-15); BICARBONATE 25.4 MEQ/L (21.0-32.0); BLOOD UREA NITROGEN 9 MG/DL (7-18)
[2017-01-26 06:40] LABS: ALT (GPT) 357 U/L (10-53); AST (GOT) 202 U/L (15-37); GLOMERULAR FILTRATION RATE 89 ML/MIN (>89)
[2017-01-26 06:41] LABS: TOTAL BILIRUBIN ADULT 1.8 MG/DL (0.2-1.0)
[2017-01-26 06:43] LABS: ALKALINE PHOSPHATASE 92 U/L (45-117)
[2017-01-26 07:56] VITALS: BP 118/80; PULSE 76; RESP 16; TEMP 97.7; O2SAT 100
[2017-01-26] MEDS: SODIUM CHLORIDE 0.9% FLUSH 10 ML FLUSH IV FLUSH SCH ×2 (09:00→20:52)
--- NOTE | 2017-01-26 10:32 | RADRPT ---
EXAM DATE/TIME: 01/26/2017 08:30 [place] COMPARISON: MRCP W/O CONTRAST, January 25, 2017, 10:16. CT ABDOMEN & PELVIS W CONTRAST, January 24, 2017, 17:3 0. INDICATIONS : Abdominal pain, nausea and vomiting. DOSE: 4.1 mCi Tc99m Mebrofenin IV MEDICAL HISTORY : Low back pain. SURGICAL HISTORY : Colon resection. Tubal ligation. ENCOUNTER: Initial ACUITY: 1 day PAIN SCALE: 2/10 LOCATION: Right upper quadrant TECHNIQUE: Following the intravenous administration of radiotracer, dynamic sequential images were performed wit h continuous acquisition. FINDINGS: HEPATIC KINETICS: There is prompt uptake of radiotracer in the liver. No focal defects are seen. There is normal rate of washout from the hepatic parenchyma. BILIARY CLEARANCE: Activity is first seen in the extrahepatic biliary system at 15 minutes. No significant small bowel e xcretion. GALLBLADDER: Activity is first seen in the gallbladder at 25 minutes. Common bile duct kinetics are normal and th ere is no evidence of biliary obstruction. BILIARY ENTRIC REFLUX: None observed. Examination was stopped prematurely at 75 minutes secondary to patient condition. CONCLUSION: 1. There is normal filling of the gallbladder which excludes acute cholecystitis and cystic duct obst ruction. 2. No excretion into the small bowel is observed. However, patient is on morphine and examination was stopped prematurely. Therefore, this finding may not be significant. Cayden Dong MD on January 26, 2017 at 10:28 Board Certified Radiologist. This report was verified electronically.
--- NOTE | 2017-01-26 10:33 | HHI.PR ---
Subjective Subjective Notes feels better today, going for HIDA scan this am. Objective Vitals/I&O Vital Signs Date Time Temp Pulse Resp B/P (MAP) Pulse Ox O2 Delivery O2 Flow Rate FiO2 01/26/17 07:56 97.7 76 16 118/80 (93) 100 01/24/17 19:38 Room Air Labs Laboratory Tests Test 01/25/17 11:20 01/25/17 19:50 01/26/17 05:25 Hepatitis A IgM Antibody NEGATIVE Hepatitis B Surface Antigen NEGATIVE Hepatitis B Core IgM Antibody NEGATIVE Hepatitis C Antibody NEGATIVE Iron Level 99 Total Iron Binding Capacity 319 Percent Iron Saturation 31.0 Blood Urea Nitrogen 9 Creatinine 0.66 Random Glucose 84 Total Protein 6.1 Albumin 2.7 Calcium Level 7.8 Alkaline Phosphatase 92 Aspartate Amino Transf (AST/SGOT) 202 Alanine Aminotransferase (ALT/SGPT) 357 Total Bilirubin 1.8 Sodium Level 140 Potassium Level 3.6 Chloride Level 108 Carbon Dioxide Level 25.4 Anion Gap 7 Estimat Glomerular Filtration Rate 89 Lipase 332 Radiology Last 48 hours Impressions Cholangiopancreatography MRI 01/25/17 0000 Signed Impressions: Service Date/Time: January 10:16 - CONCLUSION: 1. Cholelithiasis. However, there are no findings to indicate acute gallbladder obstruction or inflammation. 2. The intra-and extrahepatic bile ducts are within normal limits. 3. Mild hepatic steatosis. Cayden Dong MD Abdomen/Pelvis CT 01/24/17 1635 Signed Impressions: Service Date/Time: Tuesday, January 24, 2017 17:30 - CONCLUSION: 1. Distended second and third portions of the duodenum without apparent cause. 2. Postsurgical changes following subtotal colectomy. 3. Distended gallbladder with cholelithiasis but no active inflammatory change. 4. No evidence of suspicious mass or malignant lymphadenopathy. 5. 2 cm left adnexal cysts as described. Hugo Roberts MD Abdomen: Non-distended, Non-tender, BS normal A/P Assessment and Plan pancreatitis, liver dysfunction - ?gallstone related? gallstone seems less likely in light of normal CBD and gallbladder on imaging continue RODNEY, if no other source discovered will consider elective lap keesha to eliminate gallstones pt has no clinical or radiographic signs of cholecystitis at this time - cystic duct is patent possible lap keesha during this hospitalization if labs normalize and pt clinical condition improves also DW pt and the possibility of elective cholecystectomy as outpatient if she wants to go home - can DC home and FU in office if they prefer. Kaden Zamarripa Dr., MD Jan 26, 2017 10:33
[2017-01-26 12:00] VITALS: BP 119/76; PULSE 77; RESP 15; TEMP 97.1; O2SAT 98
[2017-01-26] MEDS ORDERED: IBUPROFEN 600 MG TAB PO PRN (14:30)
[2017-01-26 16:00] VITALS: BP 134/73; PULSE 77; RESP 16; TEMP 98.6; O2SAT 96
--- NOTE | 2017-01-26 17:11 | HHI.PR ---
Subjective Remarks Nursing reports that the patient did have some nausea vomiting last night and early this morning. Patient did go for HIDA scan which had to be aborted due to her symptoms. Patient states she tolerated her clears after that. Objective Vital Signs Date Time Temp Pulse Resp B/P (MAP) Pulse Ox O2 Delivery O2 Flow Rate FiO2 01/26/17 16:00 98.6 77 16 134/73 (93) 96 01/26/17 12:00 97.1 77 15 119/76 (90) 98 01/26/17 07:56 97.7 76 16 118/80 (93) 100 01/26/17 04:00 97.1 72 20 108/64 (79) 95 01/26/17 00:00 97.7 78 20 114/66 (82) 96 01/25/17 20:05 70 01/25/17 20:00 98.0 73 20 112/67 (82) 96 01/25/17 17:57 97.1 73 16 104/63 (77) 95 01/25/17 17:30 97.9 81 15 109/62 (78) 100 109/62 (78) 01/25/17 17:15 90 15 92/60 (71) 94 92/60 (71) I/O 01/25/17 01/25/17 01/25/17 01/26/17 01/26/17 01/26/17 07:00 15:00 23:00 07:00 15:00 23:00 Intake Total 240 ml 800 ml 240 ml Balance 240 ml 800 ml 240 ml Intake Oral 240 ml 240 ml IV Total 600 ml Other 200 ml # Voids 3 2 2 1 # Bowel Movements 0 1 Result Diagram: 01/25/17 0540 01/26/17 0525 Objective Remarks Abdomen has very mild tenderness to palpation diffusely otherwise is soft with no rebound and nondistended Very minimal jaundice noticed on the patient otherwise, was in no acute distress at this time Has mild tenderness to palpation over her left upper back which was likely from muscle strain from dry heaving A/P Assessment and Plan suspected Gallstone pancreatitis - Bilirubin level is improving. MRCP is unremarkable regarding duct size - Incomplete HIDA scan, gallbladder shows good filling but unable to visualize component of small intestine filling. - We'll monitor lipase and clinical symptoms - IV fluids and IV pain control - CMP showing improvement LFTs - Appreciate GI and general surgery consultations. Transaminitis - Suspect possible choledocholithiasis - improving D/w GI - Will touch base with radiology to see if delayed imaging is worth it for CBD evaluation. Keeping pt overnight for further observation given her N/V this AM. DVT prophylaxis SCDs given possibility of ERCP at any point Steffen Lemus MD Jan 26, 2017 17:11
[2017-01-26 20:00] VITALS: BP 117/68; PULSE 61; RESP 20; TEMP 98.5; O2SAT 95
[2017-01-27] VITALS: BP 111/67; PULSE 58; RESP 16; TEMP 98.8; O2SAT 97
[2017-01-27] MEDS: ONDANSETRON HCL 4 MG/2 ML VIAL IVP PRN (03:40)
[2017-01-27 07:43] LABS: CHLORIDE 110 MEQ/L (98-107); POTASSIUM 3.5 MEQ/L (3.5-5.1); SODIUM (NA) 142 MEQ/L (136-145)
[2017-01-27 07:47] LABS: ANION GAP 8 MEQ/L (5-15); BICARBONATE 24.4 MEQ/L (21.0-32.0); BLOOD UREA NITROGEN 7 MG/DL (7-18)
[2017-01-27 07:50] LABS: ALT (GPT) 231 U/L (10-53); AST (GOT) 82 U/L (15-37); GLOMERULAR FILTRATION RATE 89 ML/MIN (>89)
[2017-01-27 07:52] LABS: TOTAL BILIRUBIN ADULT 1.3 MG/DL (0.2-1.0)
[2017-01-27 07:53] LABS: ALKALINE PHOSPHATASE 82 U/L (45-117)
[2017-01-27 08:00] VITALS: BP 114/69; PULSE 66; RESP 13; TEMP 97.7; O2SAT 95
[2017-01-27] MEDS: SODIUM CHLORIDE 0.9% FLUSH 10 ML FLUSH IV FLUSH SCH (09:00)
[2017-01-27 12:00] VITALS: BP 128/73; PULSE 62; RESP 15; TEMP 97.3; O2SAT 97
[2017-01-27] MEDS ORDERED: OXYC1CAP PO (13:39)
[2017-01-27] MEDS ORDERED: ZOFR4TAB3 SL (13:39)
--- NOTE | 2017-01-27 13:39 | HHI.DCPOC ---
Discharge Care Plan Diagnosis: (1) Small bowel obstruction (2) Pancreatitis (3) Gallstone pancreatitis Goals to Promote Your Health * To prevent worsening of your condition and complications * To maintain your health at the optimal level Directions to Meet Your Goals Take your medications as prescribed Follow your dietary instruction Follow activity as directed Keep your appointments as scheduled Take your immunizations and boosters as scheduled If your symptoms worsen call your PCP, if no PCP go to Urgent Care Center or Emergency Room Smoking is Dangerous to Your Health. Avoid second hand smoke Call the 24-hour hour crisis hotline for domestic abuse at [facility] Jan 27, 2017 13:39
--- NOTE | 2017-01-27 13:51 | HHI.DS ---
Discharge Summary Admission Date Jan 24, 2017 at 19:26 Discharge Date: Jan 27, 2017 Admitting Diagnosis Pancreatitis, Transaminitis, Possible Ileus (1) Gallstone pancreatitis ICD Code: K85.10 - Biliary acute pancreatitis without necrosis or infection Procedures none Brief History - From Admission 66-year-old white female who was admitted for gallstone pancreatitis. Patient was in her usual state of health until about a few days ago when she began experiencing a sudden onset of abdominal pain after reaching for an object with her left arm at home. The pain radiated from her left upper abdomen to her mid epigastrium. Pain at its worst fluctuating up to a 10/10. Initially the pain would wax and wane but in the last 24 hours he became more persistent and unbearable and the patient decided to come to the emergency room. She has difficulty describing the consistency or the nature of the pain to me. She says she cannot of the right any alleviating or relieving factors otherwise when he came to medications or positioning. Patient reports some intermittent nausea but no vomiting, denies any fevers or chills. Denies any changes in her bowel habits in the past few days. She says she does not take any ongoing prescribed medications. She states that she has a complex intra-abdominal medical/surgical history with colon resection for ulcerative colitis as well as what sounds like adhesion within the past few years. CBC/BMP: 01/25/17 0540 01/27/17 0650 Significant Findings Laboratory Tests Test 01/24/17 16:45 01/24/17 16:55 01/25/17 05:40 01/25/17 11:20 White Blood Count 11.7 TH/MM3 (4.0-11.0) Neutrophils (%) (Auto) 79.4 % (16.0-70.0) Neutrophils # (Auto) 9.3 TH/MM3 (1.8-7.7) Random Glucose 116 MG/DL (74-106) Albumin 3.2 GM/DL (3.4-5.0) 2.8 GM/DL (3.4-5.0) Aspartate Amino Transf (AST/SGOT) 483 U/L (15-37) 605 U/L (15-37) Alanine Aminotransferase (ALT/SGPT) 282 U/L (10-53) 582 U/L (10-53) Total Bilirubin 1.6 MG/DL (0.2-1.0) 3.5 MG/DL (0.2-1.0) Estimat Glomerular Filtration Rate 64 ML/MIN (>89) 63 ML/MIN (>89) Lipase 5460 U/L (73-393) 5792 U/L (73-393) Urine Occult Blood SMALL (NEG) Calcium Level 8.1 MG/DL (8.5-10.1) Direct Bilirubin 1.3 MG/DL (0.0-0.2) Chloride Level 108 MEQ/L (98-107) Test 01/25/17 19:50 01/26/17 05:25 01/27/17 06:50 Total Protein 6.1 GM/DL (6.4-8.2) 6.2 GM/DL (6.4-8.2) Albumin 2.7 GM/DL (3.4-5.0) 2.8 GM/DL (3.4-5.0) Calcium Level 7.8 MG/DL (8.5-10.1) 8.1 MG/DL (8.5-10.1) Aspartate Amino Transf (AST/SGOT) 202 U/L (15-37) 82 U/L (15-37) Alanine Aminotransferase (ALT/SGPT) 357 U/L (10-53) 231 U/L (10-53) Total Bilirubin 1.8 MG/DL (0.2-1.0) 1.3 MG/DL (0.2-1.0) Chloride Level 108 MEQ/L (98-107) 110 MEQ/L (98-107) Imaging Last Impressions Hepatobiliary Scan Nuclear Medicine 01/26/17 0000 Signed Impressions: Service Date/Time: Thursday, January 26, 2017 08:30 - CONCLUSION: 1. There is normal filling of the gallbladder which excludes acute cholecystitis and cystic duct obstruction. 2. No excretion into the small bowel is observed. However, patient is on morphine and examination was stopped prematurely. Therefore, this finding may not be significant. Cayden Dong MD Cholangiopancreatography MRI 01/25/17 0000 Signed Impressions: Service Date/Time: January 10:16 - CONCLUSION: 1. Cholelithiasis. However, there are no findings to indicate acute gallbladder obstruction or inflammation. 2. The intra-and extrahepatic bile ducts are within normal limits. 3. Mild hepatic steatosis. Cayden Dong MD Abdomen/Pelvis CT 01/24/17 1635 Signed Impressions: Service Date/Time: Tuesday, January 24, 2017 17:30 - CONCLUSION: 1. Distended second and third portions of the duodenum without apparent cause. 2. Postsurgical changes following subtotal colectomy. 3. Distended gallbladder with cholelithiasis but no active inflammatory change. 4. No evidence of suspicious mass or malignant lymphadenopathy. 5. 2 cm left adnexal cysts as described. Hugo Roberts MD PE at Discharge Abdomen soft, nontender, nondistended Hospital Course Patient was admitted and started on IV fluids and IV pain control. She underwent an MRCP which did not show common bile duct dilatation. Initially her symptoms were improving. However the first night she had a recurrence of her nausea and vomiting. Gen. surgery had been consulted. The patient's HIDA scan showed good filling of the gallbladder. Patient's symptoms had resolved once again and she was tolerating clear liquids well for the next 36 hours. Patient's LFTs had significantly improved and was cleared for discharge from GI and general surgery standpoint so long as patient follow-up with surgery as an outpatient for ultimate elective cholecystectomy. Patient and were comfortable with plan. Patient has met maximal benefit from hospitalization and is clinically stable for discharge. Patient was advised to simply take the pain medications as prescribed and to avoid any nonsteroidal anti-inflammatory drugs as well as Tylenol for the time being. Pt Condition on Discharge: Stable Discharge Disposition: Discharge Home Discharge Time: <= 30 minutes Discharge Instructions DIET: Follow Instructions for: Low Fat Diet Additional Diet Instructions: advance as tolerated with soft mechanical and low fat for next few days Activities you can perform: Regular-No Restrictions Follow up Referrals: Gastroenterology - 1 Week with Amanda Coker MD PCP Follow-up - 1 Week Surgical - 2 Weeks New Orders: COMP MET PROF (CMP) - 02/02/17 @ [facility] New Medications: Ondansetron Odt (Zofran Odt) 4 Mg Tab 4 MG SL Q6HR PRN for Nausea/Vomiting, #30 TAB 0 Refills Oxycodone (Oxycodone) 5 Mg Cap 5 MG PO Q6H PRN for PAIN, #12 CAP 0 Refills Continued Medications: [lopreeza] () 1 TAB PO DAILY Steffen Lemus MD Jan 27, 2017 13:51
--- NOTE | 2017-01-27 14:11 | HHI.GIFU ---
Subjective Remarks Patient feeling very well today no new complaint, no abdominal pain, tolerating diet well, no nausea or vomiting Objective Vitals I&O Vital Signs Date Time Temp Pulse Resp B/P (MAP) Pulse Ox O2 Delivery O2 Flow Rate FiO2 01/27/17 12:00 97.3 62 15 128/73 (91) 97 01/27/17 08:00 97.7 66 13 114/69 (84) 95 01/27/17 04:50 01/27/17 00:00 98.8 58 16 111/67 (82) 97 01/26/17 20:00 98.5 61 20 117/68 (84) 95 01/26/17 16:00 98.6 77 16 134/73 (93) 96 I/O 01/26/17 01/26/17 01/26/17 01/27/17 01/27/17 01/27/17 07:00 15:00 23:00 07:00 15:00 23:00 Intake Total 240 ml 1400 ml 1000 ml Balance 240 ml 1400 ml 1000 ml Intake Oral 240 ml 420 ml IV Total 980 ml 1000 ml # Voids 2 1 2 # Bowel Movements 1 Laboratory Laboratory Tests Test 01/27/17 06:50 Blood Urea Nitrogen 7 Creatinine 0.66 Random Glucose 88 Total Protein 6.2 Albumin 2.8 Calcium Level 8.1 Alkaline Phosphatase 82 Aspartate Amino Transf (AST/SGOT) 82 Alanine Aminotransferase (ALT/SGPT) 231 Total Bilirubin 1.3 Sodium Level 142 Potassium Level 3.5 Chloride Level 110 Carbon Dioxide Level 24.4 Anion Gap 8 Estimat Glomerular Filtration Rate 89 Physical Exam HEENT: Pupils round and reactive to light; normocephalic; atraumatic; no jaundice. Throat is clear. NECK: Neck is supple, no JVD, no lymphadenopathy. CHEST: Chest is clear to auscultation and percussion. CARDIAC: Regular rate and rhythm with no murmur gallop or rubs. ABDOMEN: Soft, nondistended, nontender; no hepatosplenomegaly; bowel sounds are present in all four quadrants. EXTREMITIES: No clubbing, cyanosis, or edema. SKIN: Normal; no rash; no jaundice. PARKING LOT SPOTTER: No focal deficits; alert and oriented times three. Assessment and Plan Plan Patient is 66-year-old lady with acute pancreatitis questionable etiology could be biliary, now she's doesn't have pain, MRCP show gallbladder stones normal size duct no filling defect, upper endoscopy was done with enteroscopy FINDINGS: Minimal irritation of the stomach biopsy to rule out H. pylori Significant amount of bile in the duodenum and the stomach consistent with patent duct No mass was seen in the duodenum ampulla was not enlarged 01/27/2017 Patient is doing well, no complaint at this time, liver function test improved significantly, most likely otitis unclear etiology possible medication related or vital, or could be just all related to gallbladder disease PLAN: Repeat liver function in 1 week Okay to discharge home Laparoscopic cholecystectomy next week, patient will follow up with Dr. rodriguez Follow up with GI as an outpatient in 1 week Amanda Coker MD Jan 27, 2017 14:11
[2017-01-30 23:53] LABS: MITOCHONDRIAL ABS LESS THAN 20.0 U (<=20.0)
== END 2017-01-27 14:12 | disposition home or self-care (01) | DRG 439 ==
LOC: PHED 16:02 → PHEDA 19:26 → PH3B 20:16
PROVIDERS: ADMIT Hospitalist; ATTEND Hospitalist
PROC: 0DB68ZX Excision of Stomach, Via Natural or Artificial Opening Endoscopic, Diagnostic (ICD-10-PCS; principal; 2017-01-25 16:36)
DX: K85.10 Biliary acute pancreatitis without necrosis or infection (principal); K91.2 Postsurgical malabsorption, not elsewhere classified; K76.89 Other specified diseases of liver; E44.1 Mild protein-calorie malnutrition; K80.20 Calculus of gallbladder without cholecystitis without obstruction; K29.50 Unspecified chronic gastritis without bleeding; Z88.2 Allergy status to sulfonamides; Z68.27 Body mass index [BMI] 27.0-27.9, adult; Z90.49 Acquired absence of other specified parts of digestive tract
CPT/HCPCS: 74177; 74181; 76377; 78226; 80053; 80074; 81001; 82103; 82248; 83520; 83540; 83550; 83605; 83690; 85025; 85610; 85730; 86038; 86255; 86376; 88305; 88312; 93005; 96361; 96374; 96375; A9537; J2060; J2270; J2405; J7030; Q9967

== ENCOUNTER 2017-02-15 07:18 | Observation (INO) | payer MEDICARE ==
[~2017-02-15] VITALS: Ht 160 cm; Wt 65.0 kg
[~2017-02-15 07:18] MED LIST changes: +BUPIVACAINE/EPINEPHRINE 0.25% PF 30 ML VIAL ONE; +COQ-30CA2 PO; -ESTR1TAB PO; +ESTR1TAB80 PO; -LORTA5 PO; +MULT-65 PO; +OXYC1CAP PO; +ZOFR4TAB3 SL
[2017-02-15] MEDS ORDERED: METOPROLOL TARTRATE 25 MG TAB PO PRN (08:00)
[2017-02-15] MEDS ORDERED: LACTATED RINGER'S 1000 ML IV PRN (08:00)
[2017-02-15] MEDS ORDERED: CHLORHEXIDINE GLUCONATE 2 % 1 PACK (2 CLOTHS) TOPICAL PRN (08:00)
[2017-02-15] MEDS ORDERED: ceFAZolin 2 GM PREMIX 50 ML IV SCH (08:00)
[2017-02-15] MEDS ORDERED: POVIDONE IODINE 5% (ANTISEPSIS KIT) 4 APPLICATIONS EACH NARE PRN (08:00)
[2017-02-15] MEDS ORDERED: SODIUM CHLORID 0.9% 500 ML IV PRN (08:00)
[2017-02-15] MEDS ORDERED: METRONIDAZOLE 500 MG/100 ML ISONTONIC SOLN IV SCH (08:00)
[2017-02-15 08:26] LABS: AUTOMATED NEUTROPHIL # 5.1 TH/MM3 (1.8-7.7); BASOPHIL # 0.1 TH/MM3 (0-0.2); BASOPHIL % 0.9 % (0.0-2.0); EOSINOPHIL # 0.3 TH/MM3 (0-0.4); EOSINOPHIL % 4.1 % (0.0-4.0); HEMATOCRIT 40.8 % (35.0-46.0); HEMOGLOBIN 13.7 GM/DL (11.6-15.3); MEAN CELL VOLUME 95.2 FL (80.0-100.0); MEAN CORPUSCULAR HEMOGLOBIN 31.9 PG (27.0-34.0); MEAN CORPUSCULAR HGB CONC 33.5 % (32.0-36.0); MEAN PLATELET VOLUME 8.5 FL (7.0-11.0); MONO % 6.9 % (0.0-8.0); MONOCYTE # 0.6 TH/MM3 (0-0.9); NEUT % 63.1 % (16.0-70.0); PLATELET COUNT 228 TH/MM3 (150-450); RED BLOOD COUNT 4.29 MIL/MM3 (4.00-5.30); RED CELL DISTRIBUTION WIDTH 12.8 % (11.6-17.2); WHITE BLOOD COUNT 8.1 TH/MM3 (4.0-11.0)
[2017-02-15 08:44] LABS: ALBUMIN 3.7 GM/DL (3.4-5.0); ALT (GPT) 217 U/L (10-53); AST (GOT) 96 U/L (15-37); BLOOD UREA NITROGEN 11 MG/DL (7-18); CALCIUM 9.5 MG/DL (8.5-10.1); CHLORIDE 107 MEQ/L (98-107); CREATININE 0.85 MG/DL (0.50-1.00); GLOMERULAR FILTRATION RATE 67 ML/MIN (>89); GLUCOSE,RANDOM 102 MG/DL (74-106); SODIUM (NA) 139 MEQ/L (136-145)
[2017-02-15 08:46] LABS: ALKALINE PHOSPHATASE 93 U/L (45-117)
[2017-02-15] MEDS ORDERED: BUPIVACAINE/EPINEPHRINE 0.25% PF 30 ML VIAL ONE (09:47)
[2017-02-15] MEDS ORDERED: diphenhydrAMINE HCL 25 MG CAP PO PRN (11:15)
[2017-02-15] MEDS ORDERED: Post-op Orders (for Pharmacy) XX ONE (11:15)
[2017-02-15] MEDS ORDERED: KETOROLAC TROMETHAMINE 30 MG/ML (IVP) VIAL IVP PRN (11:15)
[2017-02-15] MEDS ORDERED: NALOXONE HCL 0.4 MG/ML AMP IV PUSH PRN (11:15)
[2017-02-15] MEDS ORDERED: ACETAMINOPHEN/HYDROcodone 325 MG/5 MG TAB PO PRN ×2 (11:15)
[2017-02-15] MEDS ORDERED: ONDANSETRON HCL 4 MG/2 ML VIAL IV PUSH PRN (11:15)
[2017-02-15] MEDS ORDERED: *ONDANSETRON 4 MG VIAL PERIprocedural Use ONLY ONE (11:26)
[2017-02-15] MEDS ORDERED: MORPHINE SULFATE 2 MG/ML INJ IV PUSH PRN (11:45)
--- NOTE | 2017-02-15 11:47 | MP ---
cc: BRISEIDA MANCINI MD DATE OF SURGERY 02/15/2017 PREOPERATIVE DIAGNOSIS 1. Previous gallstone pancreatitis. 2. Chronic cholecystitis POSTOPERATIVE DIAGNOSIS 1. Previous gallstone pancreatitis. 2. Chronic cholecystitis PROCEDURE PERFORMED Laparoscopic cholecystectomy SURGEON Briseida Mancini MD ANESTHESIA General endotracheal COMPLICATIONS None INDICATIONS FOR THE PROCEDURE Ms. Ponce is a very pleasant 66-year-old female who was hospitalized down at [facility] about two weeks ago for an episode of gallstone pancreatitis. She was subsequently discharged home and followed up in the office. The patient reported multiple attacks of epigastric and right upper quadrant abdominal pain. She actually had two attacks in the last week. She was advised to undergo cholecystectomy. The risks and benefits of open and laparoscopic cholecystectomy was discussed with her and she was agreeable. DETAILS The patient was identified, brought to the operating room, placed supine on the operating room table. After adequate general endotracheal anesthesia was achieved, the abdomen was prepped and draped in standard surgical fashion. The patient had a large midline incision from previous colectomy. We therefore elected to place the first port in the right upper quadrant. Quarter percent Marcaine was injected in the skin and subcutaneous tissue in the right upper quadrant. A transverse incision was made. Dissection was carried down through the subcutaneous tissue to the anterior abdominal wall fascia. The anterior abdominal wall fascia was then incised sharply. The abdominal wall musculature was then spread along the course of its fibers. Peritoneum was then grasped, elevated and divided sharply. A finger was then placed in the peritoneal cavity without difficulty. Blunt balloon trocar was inserted and the abdomen was insufflated to 15 mm using CO2 gas. A 30 degree laparoscope was inserted. The patient was noted to have mainly omental adhesions with no bowel adhesions in the abdominal cavity. Therefore, a 5 mm port was placed in the supraumbilical position after anesthetizing the skin and subcutaneous tissue with percent Marcaine. A few small omental adhesions were taken down with sharp dissection. Next, a second 5-mm port was placed in the right upper quadrant lateral to the initial 10 mm entry site. Quarter percent Marcaine was injected and the port was placed under direct vision. The gallbladder was identified and elevated cephalad. The gallbladder neck was meticulously dissected out. The cystic duct was confirmed in two planes. Once it was identified and confirmed in two planes, it was clipped twice proximally, once distally and then divided. The cystic artery was then identified and confirmed in two planes entering the neck of the gallbladder. It was then clipped twice proximally, once distally and then divided. The gallbladder was then dissected out of the hepatic fossa using electrocautery Bovie. The gallbladder was placed in an Endopouch bag and brought out through the right upper quadrant port. Gallbladder was inspected and found to contain multiple small stones. Clips were then placed in the cystic duct stump and there was no evidence of leakage of bile. The gallbladder was sent to pathology for analysis. Next, the abdominal cavity was revisualized. The liver bed was completely hemostatic. Clips were visualized on the cystic artery and cystic duct stump. There is no evidence of leakage of bile and no bleeding. All ports were removed under direct vision. The right upper quadrant fascia was then closed with a [id number] 0 Vicryl. Skin was closed with 4-0 Vicryl. The patient tolerated the procedure well, was awakened and brought to recovery in stable condition. MD JERSON Rasmussen/CHRISTOPHER /11:03 AM /11:21 AM
[2017-02-15] MEDS ORDERED: *morphine SULFATE 8 MG/ML PERIprocedure ONLY ONE (11:50)
[2017-02-15] MEDS ORDERED: KETOROLAC TROMETHAMINE 30 MG/ML (IVP) VIAL IV PUSH ONE (12:00)
[2017-02-15] MEDS ORDERED: LACTATED RINGER'S 1000 ML INJ 1,000 ML IV SCH (12:00)
[2017-02-15] MEDS ORDERED: NEOSTIGMINE 5 MG/5 ML SYRINGE IV PUSH ONE (12:00)
[2017-02-15] MEDS ORDERED: LIDOCAINE HCL 1% PF 5 ML SYRINGE OTHER ONE (12:00)
[2017-02-15] MEDS ORDERED: LACTATED RINGER'S 1000 ML INJ 1,000 ML IV ONE (12:00)
[2017-02-15] MEDS ORDERED: DEXAMETHASONE SOD PHOS 4 MG/ML VIAL IV ONE (12:00)
[2017-02-15] MEDS ORDERED: GLYCOPYRROLATE 1 MG/5 ML SYRINGE IV PUSH ONE (12:00)
[2017-02-15] MEDS ORDERED: ROCURONIUM INJ 50 MG/5 ML SYRINGE IV PUSH ONE (12:00)
[2017-02-15] MEDS ORDERED: PROPOFOL 200 MG/20 ML AMP IV ONE (12:00)
[2017-02-15] MEDS ORDERED: ONDANSETRON HCL 4 MG/2 ML VIAL IV PUSH ONE (12:00)
[2017-02-15 13:07] VITALS: BP 101/66; PULSE 67; RESP 16; TEMP 98.5; O2SAT 99
[2017-02-15] MEDS ORDERED: PCA - TOTAL MG MORPHINE DELIVERED PER SHIFT SCH (14:00)
== END 2017-02-15 13:52 | disposition home or self-care (01) ==
LOC: HSDC 07:18 → HSDI 11:06
PROVIDERS: ADMIT Surgery Trauma Surgery; ATTEND Surgery Trauma Surgery
DX: K85.10 Biliary acute pancreatitis without necrosis or infection (principal); K80.10 Calculus of gallbladder with chronic cholecystitis without obstruction; R74.8 Abnormal levels of other serum enzymes; Z01.818 Encounter for other preprocedural examination
CPT/HCPCS: 00790; 47562; 80053; 85025; 88304; J0690; J1100; J1885; J2270; J2405; J2710; J7120